=== PATIENT | female | born 1980 | race Two or more races ===

== ENCOUNTER 2022-12-10 05:16 | Emergency (ER) | payer OTHER, SELFPAY ==
[2022-12-10 05:19] VITALS: BP 104/74; PULSE 72; RESP 18; TEMP 36.4; O2SAT 99; BMI 24.3
--- NOTE | 2022-12-10 05:37 | ED.UPPEXIN1 ---
HPI - Extremity Injury (Upper) General Chief Complaint: Extremity Injury, Upper Stated Complaint: RIGHT FINGER Time Seen by Provider: 12/10/22 05:31 Source: patient Mode of arrival: walk-in History of Present Illness HPI narrative: states she was cutting her nails and believes she cut them too close. Now presents with infection of the right index finger. Not able to sleep because of throbbing pain. No fever Related Data Allergies Allergy/AdvReac Type Severity Reaction Status Date / Time No Known Drug Allergies Allergy Verified 12/10/22 05:21 Review of Systems ROS Status of ROS 10 or more systems reviewed and unremarkable except as noted in history and below Exam Constitutional Vital Signs - 24 hr 12/10/22 05:19 Temperature 97.5 F L Pulse Rate [Monitor] 72 Respiratory Rate 18 Blood Pressure [Right Arm] 104/74 Pulse Oximetry 99 Oxygen Delivery Method Room Air Common normals: no apparent distress, average body habitus, oriented x3, no limitations and healthy appearing HENMT Common normals: normocephalic and head/scalp atraumatic Eye Common normals: PERRL, EOMs intact bilaterally and conjunctivae normal Respiratory Common normals: normal respiratory effort, no use of accessory muscles and clear to auscultation bilaterally Cardio Common normals: regular rate, regular rhythm, S1 normal heart sound and S2 normal heart sound GI Common normals: Normal to inspection, nondistended, normoactive bowel sounds present Extremity Other: paronychia right index finger. mild-mod swelling of tip of finger. no erythema or red streaks Neuro Common normals: oriented x3, CN's II-XII intact bilaterally, moves all extremities and no focal motor deficits Psych Appearance: grossly normal Course Vital Signs Vital signs: Vital Signs Temperature 97.5 F L 12/10/22 05:19 Pulse Rate 72 12/10/22 05:19 Respiratory Rate 18 12/10/22 05:19 Blood Pressure 104/74 12/10/22 05:19 Pulse Oximetry 99 12/10/22 05:19 Oxygen Delivery Method Room Air 12/10/22 05:19 Temperature 97.5 F L 12/10/22 05:19 Pulse Rate 72 12/10/22 05:19 Respiratory Rate 18 12/10/22 05:19 Blood Pressure 104/74 12/10/22 05:19 Pulse Oximetry 99 12/10/22 05:19 Oxygen Delivery Method Room Air 12/10/22 05:19 MDM - Extremity Injury (Upper) MDM Narrative Medical decision making narrative: patient presents with a paronychia RIF. throbbing pain. No systemic symptoms. 18G needle used to make a hole at the site of exudate along side of the nail with extrusion of creamy exudate. finger then soak in warm solution. Patient given dose of Augmentin and finger dressed by nursing. Patient discharged home to follow up with her doctor Discharge Plan Discharge Chief Complaint: Extremity Injury, Upper Clinical Impression: Paronychia of finger Instructions: Paronychia (ED) Additional Instructions: follow up with family doctor in 2-3 days Stand Alone Forms: Portal Instructions Referrals: Douglas Moser MD [Primary Care Provider] - 1 week
--- NOTE | 2022-12-10 05:38 | PC.NURSE ---
patient c/o pain and swelling in 2nd digit of right hand. states she believes it got infected from clipping her fingernails. affected finger has light swelling thoughout the length of the digit and moderate swelling of tip of finger and surrounding nailbed. patient states pain woke her up out of her sleep. yesterday patient tried to soak finger in antibacterial soap and water. white pus can be seen underneath finger surrounding lateral side of nail bed.
--- NOTE | 2022-12-10 06:09 | PC.NURSE ---
affected finger soaking in hibaclense. blood and pus seen in water. patient states she is no longer feeling shooting pains down the length of her finger but it is still throbbing. minimal bleeding. patient started on antibiotics and affected finger wrapped in gauze loosely.
== END 2022-12-10 06:15 | disposition home or self-care (01) ==
PROVIDERS: Emergency Provider Internal Medicine; PCP Family Medicine
DX: L03.012 Cellulitis of left finger (principal)
CPT/HCPCS: 99283